=== PATIENT | female | born 1990 | race Caucasian/White ===

== ENCOUNTER 2024-09-10 17:17 | Emergency (ER) | payer BC, SELFPAY ==
[2024-09-10 17:18] VITALS: BP 135/89
[2024-09-10 19:17] VITALS: BMI 18.8
[2024-09-10] MEDS: FLEET PHOSPHATE ENEMA-ADULT 135 ML RECTAL (19:19)
[2024-09-10] MEDS: SENOKOT 8.6 MG PO (20:20)
--- NOTE | 2024-09-10 20:28 | ED.GENMED ---
History of Present Illness
General
Chief Complaint: Bowel Problem
Source: patient
Exam Limitations: none
Time Seen by Provider: 09/10/24 17:49
Nursing documentation reviewed up to this point in time: agreed with
History of Present Illness
History of Present Illness:
Patient to ED with complaint of constipation. States she took a laxative this AM, was able to pass a small amt of stool but reports recatl pain from straining Unable to pass any more stoo. Brought self to ED for eval.
Past History
Past History
ED Past Medical History: None
ED Past Surgical History: None
Social History
Tobacco: Non-smoker
Alcohol: None
Drug: None
Personal: Single
Living: alone
Employment: Employed
Family History
Family History: Other (Noncontributory)
Review of Systems
Review of Systems
Allergies reviewed?: Yes
All Other Systems: ROS reviewed and negative except as documented in HPI and ROS
Constitutional: Reports no symptoms
EENT: Reports no symptoms
Respiratory: Reports no symptoms
Cardiac: Reports no symptoms
ABD/GI: Reports constipated
: Reports no symptoms
Musculoskeletal: Reports no symptoms
Skin: Reports no symptoms
Neurological: Reports no symptoms
Psychiatric: Reports no symptoms
Phy Exam
General Physical Exam
General Presentation: moderate distress
General age: appears stated age
General Skin: warm and dry
General Habitus: normal
General Mental: alert
Gastrointestinal Exam
Gastrointestinal Exam: normal bowel sounds, non tender, soft, no organomegaly and non distended
Rectal Exam: normal external exam, hard stool and no rectal mass
Musculoskeletal Exam
Musculoskeletal Exam: full ROM
Skin Exam
Skin Exam: normal color, warm/dry and no rash
Psychiatric Exam
Psychiatric Exam: normal mood/affect
Course
Orders/Labs/Results
Orders:
Orders
09/10/24 19:09
Phosphate Enema [Fleet Phosphate Enema-Adult] 135 ml RECTAL NOW STA
09/10/24 20:05
Sennosides [Senokot] 8.6 mg PO NOW STA
Vital Signs
Initial and Last Documented VS:
Initial Vital Signs
Temp Pulse Resp BP Pulse Ox
98.2 F 82 16 135/89 100
09/10/24 17:18 09/10/24 17:18 09/10/24 17:18 09/10/24 17:18 09/10/24 17:18
Last Documented Vital Signs
Temp Pulse Resp BP Pulse Ox
98.2 F 82 16 135/89 100
09/10/24 17:18 09/10/24 17:18 09/10/24 17:18 09/10/24 17:18 09/10/24 17:18
*Critical Care Note
Total Time (30-74mins, 75-104mins- exclusive of procedures): Not Applicable
Update Note
Update Note:
Patient to ED with complaint of constipation. Large amt of hard stool at rectum. Given a fleets enema in ED and was then able to pass stool Will discharge home. Given dose of senna in ED and will continue Miralax daily as needed. instructed to
increase water intake. Given instructions on s/s to return to ED and she is agreable to plan
ED Attending Note
-
Portions of this chart may have been created with voice recognition software.� Occasional wrong word or��sound alike� substitutions may have occurred due to the inherent limitations of voice recognition software.
Discharge Plan
Departure
Patient Disposition: Home (Routine Discharge)
Date of Disposition: 09/10/24
Time of Disposition: 20:07
Patient with high blood pressure during this ER visit?: No
Condition: Good
Covid-19: Not Applicable
Discharge Problem:
Constipation
Instructions: Constipation, Adult (DC)
Prescriptions:
No Action
citalopram 20 MG tablet
40 mg PO DAILY
lorazepam 1 MG tablet
1 mg PO Q6HPRN PRN (Reason: anxiety) Qty: 3 0RF
Referrals:
Nancy Urias PA-C [Family Provider, Family Practice]
Activity Restrictions/Additional Instructions:
Increase your water intake. Take miralax 17g daily for the next 5 days. Stop medication if your symptoms resolve. FOllow up with your family doctor. Return to the emergency department immediately for any changes in/worsening of your symptoms.
Interventions
Interventions:
*Risk Screen - Suicide Last Done: 09/10/24 17:18
*General Assessment Last Done: 09/10/24 17:18
*Neglect/Abuse Screening Last Done: 09/10/24 17:18
*ED- Fall Risk Assessment Last Done: 09/10/24 19:18
*ED COVID-19 Vaccine History Last Done: 09/10/24 19:18
*Nursing Disposition Last Done: 09/10/24 20:22
FD-Gnykvp-Koqofeqzpk Assessment Last Done: 09/10/24 19:18
Discharge Date and Time
Print Language: [id number]
== END 2024-09-10 20:37 | disposition home or self-care (01) ==
LOC: EMR 17:17
PROVIDERS: EMERGENCY PHYSICIAN Emergency Medicine; FAMILY PHYSICIAN Student in an Organized Health Care Education/Training Program
DX: K59.00 Constipation, unspecified (principal)
CPT/HCPCS: 99282